=== PATIENT | male | born 1985 | race Caucasian/White ===

== ENCOUNTER → 2017-02-28 | Outpatient (CLI) | payer OTHER ==
[2017-02-28 11:59] LABS: BASO % 0.7 % (0.0-1.0); EOS # 0.2 K/mm3 (0.0-0.50); EOS % 2.5 % (0.0-3.0); LYMPH # 2.4 K/mm3 (1.5-6.5); LYMPH % 32.5 % (24.0-44.0); MEAN CORPUSCULAR HEMOGLOBIN 32.8 pg (27.0-33.0); MEAN CORPUSCULAR HGB CONC 35.9 g/dl (32.0-36.5); MEAN CORPUSCULAR VOLUME 91.5 fl (80.0-96.0); MONO # 0.4 K/mm3 (0.0-0.8); MONO % 5.9 % (0.0-5.0); NEUTROPHILS # 3.8 K/mm3 (1.8-7.7); RED CELL DISTRIBUTION WIDTH 13.1 % (11.5-14.5); WHITE BLOOD COUNT 6.8 K/mm3 (4.0-10.0)
[2017-02-28 12:46] LABS: ALBUMIN 3.8 GM/DL (3.2-5.2); ALBUMIN/GLOBULIN RATIO 1.41 (1.00-1.93); ALKALINE PHOSPHATASE 69 U/L (45-117); ALT/SGPT 108 U/L (12-78); ANION GAP 7 MEQ/L (8-16); AST/SGOT 40 U/L (15-37); BILIRUBIN,TOTAL 0.6 MG/DL (0.2-1.0); BLOOD UREA NITROGEN 11 MG/DL (7-18); CALCIUM LEVEL 8.4 MG/DL (8.5-10.1); CARBON DIOXIDE LEVEL 27 MEQ/L (21-32); CHLORIDE LEVEL 108 MEQ/L (98-107); CHOLESTEROL LEVEL 172 MG/DL (<200); CREATININE FOR GFR 0.86 MG/DL (0.70-1.30); GLOMERULAR FILTRATION RATE > 60.0 (>60); GLUCOSE, FASTING 75 MG/DL (70-105); POTASSIUM SERUM 4.6 MEQ/L (3.5-5.1); SODIUM LEVEL 142 MEQ/L (136-145); TOTAL PROTEIN 6.5 GM/DL (6.4-8.2); TRIGLYCERIDES LEVEL 209 MG/DL (<150)
--- NOTE | 2017-02-28 19:08 | ECGEPIP ---
Stationary ECG Study [facility] Test Date: 2017-02-28 Pat Name: MILES BUENROSTRO Department: Room: - Gender: M Oral Therapist: BRENNAN : 1985 Requested By: Hillary Saavedra Order Number: [id number] Reading MD: Alana Rodriguez Measurements Intervals [place] Rate: 70 P: 7 ND: 139 QRS: 10 QRSD: 93 T: 24 QT: 379 QTc: 411 Interpretive Statements SINUS RHYTHM NO PRIOR Electronically Signed On 02-28-2017 19:08:16 EDT by Alana Rodriguez
--- NOTE | 2017-03-01 02:23 | REP ---
Clinical: Primary essential hypertension . Comparison: None . Technique: PA and lateral. Findings: The mediastinum and cardiac silhouette are normal. The lung vinson are clear and without acute consolidation, effusion, or pneumothorax. The skeletal structures are intact and normal. Impression: 1. No acute cardiopulmonary process. Signed by Chon Patiño MD 03/01/2017 02:13 A
== END ==
LOC: M LAB 11:13
PROVIDERS: ATTEND Physician Assistant Medical
DX: I10 Essential (primary) hypertension (principal)

== ENCOUNTER → 2017-03-28 | Outpatient (CLI) | payer OTHER ==
--- NOTE | 2017-03-28 09:04 | REP ---
Clinical: Elevated liver function tests. Technique: Real time henderson scale ultrasound examination using curved array transducer. Findings: The liver is diffusely increased in echogenicity with poor through transmission suggesting fatty infiltration and/or hepatocellular disease. No obvious focal hepatic lesion identified. The pancreas is incompletely evaluated due to interposed bowel gas and technical factors. The gallbladder is normal and without gallstones, wall thickening, or pericholecystic fluid. No obvious biliary ductal dilatation is appreciated. Common bile duct is poorly identified due to poor through transmission. The right kidney is normal in reniform shape without hydronephrosis and measures 11.6 x 6.3 x 7.7 cm. No obvious ascites. Impression: 1. Diffusely echogenic liver with poor through transmission suggests fatty infiltration and/or hepatocellular disease. No obvious focal hepatic lesion identified. 2. Remainder examination limited due to poor through transmission. Consider CT with contrast of the abdomen and pelvis if necessary. Signed by Chon Patiño MD 03/28/2017 07:58 A
== END ==
LOC: M RAD 07:18
PROVIDERS: ATTEND Physician Assistant Medical
DX: R94.5 Abnormal results of liver function studies (principal)

== ENCOUNTER → 2017-06-19 | Outpatient (REF) ==
[~2017-06-19] MED LIST: LISI-538 PO; NAPR500T PO
== END ==
LOC: M LAB 10:46
PROVIDERS: ATTEND Nurse Practitioner Adult Health
DX: Z02.1 Encounter for pre-employment examination (principal)

== ENCOUNTER → 2018-01-12 | Outpatient (CLI) | payer OTHER | LOC: M PAIN 13:00 | DX: M54.5 Low back pain (principal); G89.29 Other chronic pain; I10 Essential (primary) hypertension; Z79.899 Other long term (current) drug therapy | CPT/HCPCS: G0463 ==